=== PATIENT | male | born 1960 | race Caucasian/White ===

== ENCOUNTER → 2023-06-16 06:21 | Day surgery (SDC) | payer OTHER, SELFPAY ==
[2023-06-16 07:23] LABS: Glucose - Point of Care 99 mg/dl (70-99)
== END ==
LOC: GI 06:21
PROVIDERS: ATTENDING PHYSICIAN Internal Medicine Gastroenterology
DX: Z12.11 Encounter for screening for malignant neoplasm of colon (principal); K64.8 Other hemorrhoids; K64.4 Residual hemorrhoidal skin tags; K57.30 Diverticulosis of large intestine without perforation or abscess without bleeding; D12.2 Benign neoplasm of ascending colon
CPT/HCPCS: 45385; 88305; 82962

== ENCOUNTER 2024-05-18 06:36 | Day surgery (SDC) | payer OTHER, SELFPAY ==
[2024-05-16 09:01] LABS: Hematocrit 42.5 % (39.0-52.0); Hemoglobin 14.3 g/dL (13.0-18.0); Mean Corp Hgb Conc. 33.6 g/dL (33.0-37.0); Mean Corpuscular Hgb 30.3 pg (27.0-31.0); Mean Platelet Volume 9.6 fL (7.4-10.4); Platelet Count 265 10^3/uL (130-400); Red Blood Cell Count 4.72 10^6/uL (4.70-6.10); Red Cell Dist. Width 11.9 % (11.5-14.5); White Blood Cell Count 4.6 10^3/uL (4.8-10.8)
[2024-05-16 09:23] LABS: Blood Urea Nitrogen 26 mg/dl (9-20); Calcium 9.6 mg/dl (8.4-10.2); Carbon Dioxide 29 mmol/L (22-30); Chloride 99 mmol/L (98-107); Glucose 126 mg/dl (70-99); Potassium 4.9 mmol/L (3.5-5.1); Sodium 137 mmol/L (135-145); eGFR > 60.00
[2024-05-16 13:09] VITALS: BMI 19.8
[2024-05-18] VITALS (7 sets, daily range): BP systolic 104–132; BP diastolic 66–84; BMI 19.8; BMI 19.2
[2024-05-18 10:04] LABS: Glucose - Point of Care 126 mg/dl (70-99)
[2024-05-18] MEDS: NORMOSOL-R/PLASMALYTE-A 1000 IV (10:06)
[2024-05-18 12:10] LABS: Glucose - Point of Care 106 mg/dl (70-99)
== END 2024-05-18 13:38 | disposition home or self-care (01) ==
LOC: SDS 06:36
PROVIDERS: ATTENDING PHYSICIAN Specialist; FAMILY PHYSICIAN Family Medicine
DX: N43.3 Hydrocele, unspecified (principal); N43.42 Spermatocele of epididymis, multiple
CPT/HCPCS: 54840; 36415; 80048; 82962; 85027; 93005

== ENCOUNTER → 2024-07-13 12:43 | Outpatient (REF) | payer OTHER, SELFPAY | LOC: MRI 3T 12:43 | PROVIDERS: ATTENDING PHYSICIAN Specialist; FAMILY PHYSICIAN Family Medicine | DX: R97.20 Elevated prostate specific antigen [PSA] (principal) | CPT/HCPCS: 72197; A9575 ==